=== PATIENT | female | born 1980 | race Caucasian/White ===

== ENCOUNTER 2018-06-15 15:24 | Emergency (ER) | payer MEDICAID ==
[~2018-06-15] VITALS: Ht 175.3 cm; Wt 65.8 kg
[~2018-06-15 15:24] MED LIST: NKM
[2018-06-15] MEDS ORDERED: Isovue-300 100ml vial INJ PRN (15:45)
[2018-06-15] MEDS ORDERED: Norco 5mg/325mg tab ORAL ONE (15:45)
--- NOTE | 2018-06-15 16:19 | Emergency Room Report ---
History of Present Illness General Chief Complaint: Skin Rash/Abscess Source: Patient, EMS Present Illness HPI 37-year-old female patient presents ER brought in by ambulance for abscess on her left buttock. Patient was seen under her doctor earlier today and was sent to the ER here to have a pilonidal abscess ruled out. Patient reports the emesis first appeared on Tuesday and slowly growing size to become painful. Reports began draining yesterday. Denies fever, chest pain, shortness breath, abdominal pain. Denies pain with bowel movements or diarrhea. denies hematuria , vaginal discharge, reports mild discomfort with urination intermittently. Allergies: Coded Allergies: No Known Allergies (Unverified , 06/15/18) Patient History Past Medical History: see triage record Last Menstrual Period: 06/07/18 Reviewed Nursing Documentation: PMH: Agreed; PSxH: Agreed Nursing Documentation-PMH Past Medical History: No Stated History Review of Systems All Other Systems: negative except mentioned in HPI Physical Exam Vital Signs Date Time Temp Pulse Resp B/P (MAP) Pulse Ox O2 Delivery O2 Flow Rate FiO2 06/15/18 15:20 98.6 60 16 136/80 100 Room Air Sp02 EP Interpretation: reviewed, normal General Appearance: well appearing, no apparent distress, alert, GCS 15, non- toxic Head: normocephalic, atraumatic Eyes: bilateral eye normal inspection, bilateral eye PERRL ENT: hearing grossly normal, normal pharynx, no angioedema, normal voice, uvula midline, moist mucus membranes Neck: full range of motion Respiratory: lungs clear, normal breath sounds, no rhonchi, no respiratory distress, no accessory muscle use, no wheezing, speaking full sentences Cardiovascular #1: regular rate, rhythm, no edema Gastrointestinal: non tender, soft, no mass, non-distended, no guarding, no rebound Musculoskeletal: back normal, digits/nails normal, gait/station normal, normal range of motion, non-tender Neurologic: alert, oriented x3, responsive, motor strength/tone normal, sensory intact Psychiatric: mood/affect normal Skin: other - left buttock: 3 cm palpable abscess with surrounding erythema and edema, portions are fluctuant and indurated, draining currently, no red streaking Procedures Incision and Drainage Incision and Drainage : Consent: Verbal Site: left distal buttock Blade Size: 11 I & D Procedure: betadine prep, sterile drapes applied, sterile dressing applied Wound Location: other - left lower buttock Wound's Depth, Shape: superficial Wound Length (cm): 1 Wound Explored: contaminated Irrigated w/ Saline (ccs): 10 Anesthesia: 1% Lidocaine Volume Anesthetic (ccs): 2 Splint Applied?: No Sling Applied?: No Patient Tolerated: Well Complications: None Medical Decision Making PA Attestation Dr. Cabrera is my supervising Physician whom patient management has been discussed with. Diagnostic Impression: Primary Impression: Abscess Additional Impressions: Ovarian cyst Cystitis ER Course Pt. presents to the ED BIB ambulance complaining of infection on left buttock. Ddx considered but are not limited to cellulitis, abscess, fistula, hemorrhoid , pilonidal cyst. Vital signs: are WNL, pt. is afebrile Ordered pain medication, labs, and CT abdomen/pelvis. ED COURSE: Toradol for pain. Topical LET applied to abscess. CBC and CMP unremarkable, no elevation WBCs UA shows elevated WBCs, likely UTI, will provide patient with antibiotics at discharge. CT shows Heterogeneous density and fat stranding in the medial right buttock talk partially visualized, measuring approximately 5.4 x 3.8 cm. Findings may represent phlegmon and cellulitis. No discrete abscess identified, but the affected region is not entirely included in the [id number]. Mildly prominent inguinal lymph nodes. Follicles or small cysts in the right ovary. Mild prominence of the bladder. Discuss results with the patient. Provided patient with copy of results. Instructed patient to followup with PCP and discuss results of report with patient, discuss need for further treatment and referral. states she will follow -up with her clinic tomorrow or Tuesday. See procedure note. Local block with lidocaine. Small incision made, pus drained from abscess. Patient tolerated procedure well without complications. Wound dressed. Will provide patient with pain medication and abx. Wound check in 2 days. ER precautions given. Patient seen and evaluated by Dr. Cabrera, agrees with assessment and treatment plan. DISCHARGE: -Rx provided for Bactrim -Rx provided for Keflex -Rx provided for Ultram. CURES reviewed. At this time pt. is stable for d/c to home. Patient resting comfortably, in no acute distress, nontoxic appearing. Will provide printed patient care instructions and any necessary prescriptions. Care plan and follow up instructions have been discussed with the patient prior to discharge. Patient instructed to follow-up with primary care provider in 2 - 3 days for wound recheck. Patient questions asked and answered. ER precautions given. Patient instructed to return to ER immediately for any new or worsening of symptoms including but not limited to fever, worsening of pain symptoms, worsening of erythema, red streaking. - Please note that this Emergency Department Report was dictated using [employer] technology software, occasionally this can lead to erroneous entry secondary to interpretation by the dictation equipment. Labs Test 06/15/18 16:02 White Blood Count 9.9 K/UL (4.8-10.8) Red Blood Count 3.97 M/UL (4.20-5.40) Hemoglobin 13.1 G/DL (12.0-16.0) Hematocrit 36.9 % (37.0-47.0) Mean Corpuscular Volume 93 FL (80-99) Mean Corpuscular Hemoglobin 33.0 PG (27.0-31.0) Mean Corpuscular Hemoglobin Concent 35.5 G/DL (32.0-36.0) Red Cell Distribution Width 10.3 % (11.6-14.8) Platelet Count 352 K/UL (150-450) Mean Platelet Volume 5.3 FL (6.5-10.1) Neutrophils (%) (Auto) 76.0 % (45.0-75.0) Lymphocytes (%) (Auto) 15.6 % (20.0-45.0) Monocytes (%) (Auto) 7.0 % (1.0-10.0) Eosinophils (%) (Auto) 0.9 % (0.0-3.0) Basophils (%) (Auto) 0.6 % (0.0-2.0) Urine Color Yellow Urine Appearance Slightly cloudy Urine pH 6 (4.5-8.0) Urine Specific [place] 1.020 (1.005-1.035) Urine Protein 1+ (NEGATIVE) Urine Glucose (UA) Negative (NEGATIVE) Urine Ketones Negative (NEGATIVE) Urine Blood 2+ (NEGATIVE) Urine Nitrite Negative (NEGATIVE) Urine Bilirubin Negative (NEGATIVE) Urine Urobilinogen 1 MG/DL (0.0-1.0) Urine Leukocyte Esterase 2+ (NEGATIVE) Urine RBC 5-10 /HPF (0 - 2) Urine WBC 10-15 /HPF (0 - 2) Urine Squamous Epithelial Cells Moderate /LPF (NONE/OCC) Urine Bacteria Few /HPF (NONE) Urine Mucus Many /LPF (NONE/OCC) Urine HCG, Qualitative Negative (NEGATIVE) Sodium Level 141 MMOL/L (136-145) Potassium Level 3.7 MMOL/L (3.5-5.1) Chloride Level 102 MMOL/L (98-107) Carbon Dioxide Level 32 MMOL/L (21-32) Anion Gap 7 mmol/L (5-15) Blood Urea Nitrogen 15 mg/dL (7-18) Creatinine 0.8 MG/DL (0.55-1.30) Estimat Glomerular Filtration Rate > 60 mL/min (>60) Glucose Level 93 MG/DL (74-106) Calcium Level 9.0 MG/DL (8.5-10.1) Total Bilirubin 0.2 MG/DL (0.2-1.0) Aspartate Amino Transf (AST/SGOT) 17 U/L (15-37) Alanine Aminotransferase (ALT/SGPT) 23 U/L (12-78) Alkaline Phosphatase 77 U/L (46-116) Total Protein 7.5 G/DL (6.4-8.2) Albumin 3.4 G/DL (3.4-5.0) Globulin 4.1 g/dL Albumin/Globulin Ratio 0.8 (1.0-2.7) CT/MRI/US Diagnostic Results CT/MRI/US Diagnostic Results : Imaging Test Ordered: CT abdomen pelvis Impression Heterogeneous density and fat stranding in the medial right buttock talk partially visualized, measuring approximately 5.4 x 3.8 cm. Findings may represent phlegmon and cellulitis. No discrete abscess identified, but the affected region is not entirely included in the [id number]. Under distended gallbladder. No calcified gallstones. Mild hepatomegaly versus Cristal's lobe configuration. Stomach is mildly distended with ingested material which may be related to a recent meal. Normal appendix. Diverticulosis without evidence of diverticulitis. No bowel obstruction or inflammation. Follicles or small cysts in the right ovary which could be further evaluated with dedicated ultrasound if clinically indicated. No hydronephrosis or stone. Mildly prominent inguinal lymph nodes are nonspecific but may be reactive. Probable small bone islands in the pelvic bones. Mild prominence of the bladder wall may be secondary to underdistention. Please correlate with urinalysis if concerned for cystitis. Last Vital Signs Date Time Temp Pulse Resp B/P (MAP) Pulse Ox O2 Delivery O2 Flow Rate FiO2 06/15/18 15:20 98.6 60 16 136/80 100 Room Air Status: improved Disposition: HOME, SELF-CARE Condition: Stable Scripts Tramadol Hcl* (ULTRAM*) 50 Mg Tablet 50 MG ORAL Q6H PRN for For Pain, #10 TAB 0 Refills Prov: Paco Vega 06/15/18 Trimethoprim/Sulfamethoxazole 160/800* (BACTRIM DS TABLET*) 1 Each Tablet 1 TAB ORAL TWICE A DAY for 7 Days, #14 TAB Prov: Paco Vega 06/15/18 Cephalexin* (KEFLEX*) 500 Mg Capsule 500 MG ORAL EVERY 12 HOURS, #14 CAP 0 Refills Prov: Paco Vega 06/15/18 Referrals: NOT CHOSEN IPA/,REFERRING (PCP) Patient Instructions: Abscess, Ovarian Cyst, [id number], Urinary Tract Infection, [id number] Additional Instructions: Followup with primary care provider in 2 days or return to ER for wound check. Discuss CT results and further followup and referral. Discuss referral to OBGYN. Follow-up with specialist, contact information provided. Advised on Sitz baths. Keep clean and dry. Allow to drain. Drink plenty of fluids. Take medications as directed. Patient questions asked and answered. ER precautions given, patient instructed to return to ER immediately for any new or worsening of symptoms. Paco Vega Jun 15, 2018 16:19
[2018-06-15 16:22] LABS: BASOPHILS % (AUTO) 0.6 % (0.0-2.0); EOSINOPHILS % (AUTO) 0.9 % (0.0-3.0); HEMATOCRIT 36.9 % (37.0-47.0); HEMOGLOBIN 13.1 G/DL (12.0-16.0); LYMPHOCYTES % (AUTO) 15.6 % (20.0-45.0); MEAN CORPUSCULAR VOLUME 93 FL (80-99); PLATELET COUNT 352 K/UL (150-450); RED BLOOD COUNT 3.97 M/UL (4.20-5.40); RED CELL DISTRIBUTION WIDTH 10.3 % (11.6-14.8); WHITE BLOOD COUNT 9.9 K/UL (4.8-10.8)
[2018-06-15 16:28] LABS: APPEARANCE,URINE SLIGHTLY CLOUDY; BILIRUBIN, URINE NEGATIVE (NEGATIVE); GLUCOSE, URINE (UA) NEGATIVE (NEGATIVE); KETONES,URINE NEGATIVE (NEGATIVE); LEUKOCYTE ESTERASE ,URINE 2+ (NEGATIVE); NITRITE,URINE NEGATIVE (NEGATIVE); PH,URINE 6 (4.5-8.0); PROTEIN,URINE 1+ (NEGATIVE); UROBILINOGEN,URINE 1 MG/DL (0.0-1.0)
[2018-06-15 16:30] LABS: COLOR,URINE YELLOW
[2018-06-15 16:33] LABS: ANION GAP 7 mmol/L (5-15); BLOOD UREA NITROGEN 15 mg/dL (7-18); CARBON DIOXIDE 32 MMOL/L (21-32); CHLORIDE 102 MMOL/L (98-107); CREATININE 0.8 MG/DL (0.55-1.30); POTASSIUM 3.7 MMOL/L (3.5-5.1); SODIUM 141 MMOL/L (136-145)
[2018-06-15 16:38] LABS: ALANINE AMINOTRANSFERASE 23 U/L (12-78); ALBUMIN 3.4 G/DL (3.4-5.0); ALBUMIN/GLOBULIN RATIO 0.8 (1.0-2.7); ALKALINE PHOSPHATASE 77 U/L (46-116); ASPARTATE AMINO TRANSFERASE 17 U/L (15-37); BILIRUBIN,TOTAL 0.2 MG/DL (0.2-1.0)
[2018-06-15] MEDS ORDERED: LET 3ml Soln TOPIC ONE (16:45)
[2018-06-15 17:31] VITALS: BP 136/80
[2018-06-15] MEDS ORDERED: Lidocaine 1% Plain 30 ml INJ ONE (18:45)
[2018-06-15] MEDS ORDERED: CEPHALEXIN500 MG ORAL (19:16)
[2018-06-15] MEDS ORDERED: BACTRIM DS TAB1 EAC1 ORAL (19:16)
[2018-06-15] MEDS ORDERED: TRAMADOL HCL50 MG ORAL (19:16)
[2018-06-15 19:28] VITALS: BP 136/80
--- NOTE | 2018-06-16 09:04 | Diagnostic Imaging Report ---
Clinical Indication: Abdominal pain. History of buttock abscess Technique: No oral contrast utilized, per emergency room physician request IV administration nonionic contrast. Venous phase spiral acquisition obtained through the abdomen and pelvis. Multiplanar reconstructions were generated. Total dose length product 467.24 mGycm. CTDIvol(s) 9.4 mGy. Dose reduction achieved using automated exposure control Comparison: none Findings: There is marked infiltration of the fat of the lower buttock and perineal region extending into the medial thigh no discrete abscess. This area is incompletely included in the imaging volume, however. On the coronal images, there is suggestion of a low-attenuation collection extending beyond the imaging volume. The appendix is normal. No evidence of diverticulosis or diverticulitis. No small bowel distention. No free or loculated intraperitoneal gas or fluid is evident. Distal esophagus, stomach, duodenum are unremarkable. The liver, gallbladder, bile ducts, pancreas, spleen, adrenals, kidneys are unremarkable. No retroperitoneal or mesenteric mass or adenopathy. No pelvic mass or adenopathy. Uterus and ovaries are unremarkable. The included lung bases are clear. The bones demonstrate degenerative spondylosis changes. Impression: Inflammatory change of the left lower buttock/perineal region, extending into the proximal medial left thigh beyond the imaging volume, consistent with cellulitis. Per ER physician report, patient had an abscess in this area which was drained. The superior extent of the abscess is probably visible on the coronal reconstructed images. The remainder of the exam is essentially unremarkable This agrees with the preliminary interpretation provided overnight by [facility]. The CT scanner at [facility] is accredited by the [employer] and the scans are performed using protocols designed to limit radiation exposure to as low as reasonably achievable to attain images of sufficient resolution adequate for diagnostic evaluation.
== END 2018-06-15 19:29 | disposition home or self-care (01) ==
LOC: EDBD 15:24 → EMR 16:13
DX: L02.31 Cutaneous abscess of buttock (principal); N83.209 Unspecified ovarian cyst, unspecified side; N30.90 Cystitis, unspecified without hematuria
CPT/HCPCS: 10060; 36415; 74177; 80053; 81003; 81025; 85025; 87086; 96360; 99284; J2001; Q9967